=== PATIENT | male | born 1990 | race Two or more races ===

== ENCOUNTER 2017-08-06 18:05 | Emergency (ER) | payer SELFPAY ==
[~2017-08-06] VITALS: Ht 182.9 cm; Wt 90.7 kg
[2017-08-06] MEDS ORDERED: LIDOCAINE 1% HCL (LOCAL ANESTH.) INJ 20ML MDV ONE (18:09)
[2017-08-06] MEDS ORDERED: LIDOCAINE 2% (LOCAL ANESTH.) PF 5ml SDV ONE (18:10)
[2017-08-06] MEDS ORDERED: KETAMINE HCL 1 ML ONE (18:14)
[2017-08-06] MEDS ORDERED: SODIUM CHLORIDE 0.9% 2,000 ML IV ONE (18:15)
[2017-08-06] MEDS ORDERED: KETAMINE HCL 50 MG/ML 10ML VIAL IV ONE (18:15)
[2017-08-06] MEDS ORDERED: LORazepam 2MG/ML-1ML VIAL IV ONE ×2 (18:15→18:30)
[2017-08-06] MEDS ORDERED: LIDOCAINE 1% (LOCAL ANESTH.) PF 5ml SDV IJ ONE (18:30)
[2017-08-06] MEDS ORDERED: LIDOCAINE 2% (LOCAL ANESTH.) PF 5ml SDV IJ ONE (18:30)
[2017-08-06] MEDS ORDERED: SUCCINYLCHOLINE CHLORIDE 20 MG/ML 10ML VIAL IV ONE (18:38)
[2017-08-06] MEDS ORDERED: ROCURONIUM 10MG/ML 10ML VIAL IV ONE ×2 (19:08→19:15)
[2017-08-06 19:14] VITALS: BP 169/102
== END 2017-08-06 19:37 | disposition short-term general hospital (02) ==
LOC: EDBD 18:05 → ER 18:05
DX: T20.29XA Burn of second degree of multiple sites of head, face, and neck, initial encounter (principal); T23.202A Burn of second degree of left hand, unspecified site, initial encounter; T23.201A Burn of second degree of right hand, unspecified site, initial encounter; T21.22XA Burn of second degree of abdominal wall, initial encounter; T21.24XA Burn of second degree of lower back, initial encounter; F17.210 Nicotine dependence, cigarettes, uncomplicated; F12.10 Cannabis abuse, uncomplicated; W40.1XXA Explosion of explosive gases, initial encounter; Y93.89 Activity, other specified; Y99.8 Other external cause status; Y92.89 Other specified places as the place of occurrence of the external cause
CPT/HCPCS: 31500; 87070; 87205; 96374; 96375; 99291; J0330; J2001; J2060